=== PATIENT | male | born 1995 | race Caucasian/White ===

== ENCOUNTER 2024-02-26 15:40 | Emergency (ER) | payer BC, SELFPAY ==
[2024-02-26 15:58] VITALS: BP 140/83; PULSE 87; RESP 16; TEMP 36.8; O2SAT 99
[2024-02-26 15:59] VITALS: BP 140/83; PULSE 87; RESP 16; TEMP 36.8; O2SAT 99
--- NOTE | 2024-02-26 16:16 | ED.URI ---
HPI - URI/Sore Throat General Chief Complaint: Upper Respiratory Infection Stated Complaint: sore throat,salivating a lot,stomach upset Time Seen by Provider: 02/26/24 16:16 Source: patient Mode of arrival: ambulatory Limitations: no limitations History of Present Illness HPI Narrative: 29-year-old male presents with complaint of sore throat, upset stomach, mouth salivating for 5 days. Patient currently on amoxicillin for dental infection. It needs to have a root canal. Began coughing today. 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 Afebrile. Well-appearing. All systems reviewed and negative except as noted above. Related Data Home Medications Medication Instructions Recorded Confirmed No Home Medications 02/26/24 02/26/24 Allergies Allergy/AdvReac Type Severity Reaction Status Date / Time No Known Allergies Allergy Verified 02/26/24 15:58 Review of Systems Review of Systems: CONSTITUTIONAL: Denies fever, chills, or sweats. EYES: Denies visual changes, redness, or discharge. ENT: Denies rhinorrhea, congestion. Reports sore throat. Denies otalgia. CARDIOVASCULAR: Denies chest pain, palpitations, or edema. RESPIRATORY: Reports cough . Denies dyspnea. GASTROINTESTINAL: Denies abdominal pain, nausea, vomiting, or diarrhea. GENITOURINARY: Denies dysuria or hematuria. SKIN: Denies rash or itching. MUSCULOSKELETAL: Denies back pain, joint pain, or myalgia. NEUROLOGIC: Denies headache, numbness, or weakness. PSYCHIATRIC: Denies anxiety or depression. All other systems reviewed are negative, except as documented in HPI. PMFSH Comments At time of signature, agree with nursing past medical, surgical, social and family history. There is no relevant family history pertinent to the presenting complaint. Exam Narrative: GENERAL: This is a well-nourished, well-developed patient, in no apparent distress. HEAD: normocephalic, atraumatic. EYES: PERRL. Sclera clear/white. Vision is grossly intact. EARS: External ears normal, auditory canals clear and without drainage, TMs normal without perforation. Hearing grossly intact. NOSE: External nose normal with no obvious nasal discharge, nares without redness, no rhinorrhea. THROAT: Mucous membranes moist, mild erythema postnasal drainage. No swelling or exudates. NECK: Neck supple, non-tender without lymphadenopathy, masses or thyromegaly. CARDIOVASCULAR: Regular rate and rhythm without murmurs, gallops, or rubs. RESPIRATORY: Clear to auscultation. Breath sounds equal bilaterally. No wheezes, rales, or rhonchi. SKIN: warm, Dry, intact with no suspicious lesions or rash, good texture and turgor. NEURO: awake, alert, and oriented to person, place and time. There were no obvious focal neurologic abnormalities. EXTREMITIES: No joint tenderness, effusion, or edema noted. Course Course Level of Care: Express Care Visit Vital Signs Vital signs: Vital Signs Temperature 36.8 C 02/26/24 15:58 Pulse Rate 87 02/26/24 15:58 Respiratory Rate 16 02/26/24 15:58 Blood Pressure 140/83 02/26/24 15:58 Pulse Oximetry 99 02/26/24 15:58 Oxygen Delivery Room Air 02/26/24 15:58 Temperature 36.8 C 02/26/24 15:59 Pulse Rate 87 02/26/24 15:59 Respiratory Rate 16 02/26/24 15:59 Blood Pressure 140/83 02/26/24 15:59 Pulse Oximetry 99 02/26/24 15:59 Oxygen Delivery Room Air 02/26/24 15:59 Reviewed MDM - URI/Sore Throat MDM Narrative Medical decision making narrative: negative strep and COVID test. Patient already on amoxicillin. Patient well-appearing. Recommend [id number] medications to treat symptoms. Continue antibiotic to treat dental infection. Patient is aware of diagnosis, understands and agrees to treatment plan. Anticipatory guidance given. Patient agrees to follow-up as directed and is aware of reasons to seek care at the emergency department. [place]
== END 2024-02-26 16:46 | disposition home or self-care (01) ==
PROVIDERS: Emergency Provider Nurse Practitioner Family
DX: J06.9 Acute upper respiratory infection, unspecified (principal); Z20.822 Contact with and (suspected) exposure to COVID-19
CPT/HCPCS: 87081; 87426; 87880; 99203; G0463